=== PATIENT | female | born 1980 | race Caucasian/White ===

== ENCOUNTER 2018-09-04 15:03 | Inpatient (IN) | payer MEDICAID, OTHER ==
[2018-09-04] MEDS ORDERED: Lactated Ringers 1,000 ML IV SCH (15:15)
[2018-09-04] MEDS ORDERED: Penicillin G Potassium 5 MILLUNITS in Sodium Chloride 0.9% 50 ML IV ONE (15:30)
[2018-09-04] MEDS: Penicillin G Potassium 5 MILLUNITS in Sodium Chloride 0.9% 100 ML IV ONE ×2 (15:50→17:55)
[2018-09-04] MEDS ORDERED: Sodium Chloride 0.9% 10 ML Syringe FLUSH PRN (16:03)
[2018-09-04] MEDS ORDERED: ePHEDrine 50 MG/ML SDV IVPUSH PRN ×2 (16:07→17:45)
[2018-09-04] MEDS ORDERED: Lactated Ringers 1,000 ML IV ONE (16:07)
--- NOTE | 2018-09-04 16:17 | PCM.LDHP ---
L&D History of Present Illness - General Date of Service: 09/04/18 Admit Problem/Dx: Patient Status Order with Admit Dx/Problem 09/04/18 16:03 Patient Status [ADT] Routine Admission Diagnosis/Problem Admission Diagnosis/Problem - Related Data Allergies/Adverse Reactions: Allergies Allergy/AdvReac Type Severity Reaction Status Date / Time ciprofloxacin HCl Allergy Severe Hypotension Verified 09/02/15 21:26 [From Cipro] cyclobenzaprine HCl Allergy Severe Hallucinati Verified 09/02/15 21:26 [From Flexeril] ons ketorolac tromethamine Allergy Severe Vomiting Verified 09/02/15 21:26 [From Toradol] Home Medications: Home Meds NK [No Known Home Meds] 09/02/15 [History] Past Medical History HEENT History: Reports: Impaired Vision Other HEENT History: wears contacts [employer] SAL[employer]IATE History: Reports: , Spontaneous Musculoskeletal History: Reports: Back Pain, Chronic Other Musculoskeletal History: L- 5 injury Neurological History: Reports: Concussion, Migraines Psychiatric History: Reports: Anxiety, Depression, OCD, Panic Attack - Infectious Disease History Infectious Disease History: Reports: Chicken Pox, Measles - Past Surgical History Female Surgical History: Reports: D&C H&P Review of Systems - Review of Systems: Review Of Systems: See Below General: Reports: No Symptoms HEENT: Reports: No Symptoms Pulmonary: Reports: No Symptoms Cardiovascular: Reports: No Symptoms Gastrointestinal: Reports: No Symptoms Genitourinary: Reports: No Symptoms Musculoskeletal: Reports: No Symptoms Skin: Reports: No Symptoms Psychiatric: Reports: No Symptoms Neurological: Reports: No Symptoms Hematologic/Lymphatic: Reports: No Symptoms Immunologic: Reports: No Symptoms L&D Exam - Exam Exam: See Below - Vital Signs Weight: 91.172 kg - OB Specific Contraction Intensity: Strong Movement: Active Heart Tones: Present Heart Rate (FHR) Variability: Moderate (6-25 bmp) Presentation: unsure - Greco Score Greco Score Cervix Position: Midposition Greco Score Consistency: Soft Greco Score Effacement: >80% Greco Score Dilation: > 5 cm Greco Score Infant's Station: -1 ,0 Greco Score Total: 11 - Exam General: Alert, Oriented, Cooperative HEENT: PERRLA, Conjunctiva Clear, EACs Clear, EOMI, Hearing Intact, Mucosa Moist & [place], Nares Patent, Normal Nasal Septum, Posterior Pharynx Clear, TMs Clear Neck: Supple, Trachea Midline Lungs: Clear to Auscultation, Normal Respiratory Effort Cardiovascular: Regular Rate, Regular Rhythm GI/Abdominal Exam: Normal Bowel Sounds, Soft, Non-Tender, No Organomegaly, No Distention, No Abnormal Bruit, No Mass, Pelvis Stable Rectal Exam: Normal Exam, Normal Rectal Tone Genitourinary: Normal external exam, Normal bimanual exam, Normal speculum exam Back Exam: Normal Inspection, Full Range of Motion Extremities: Normal Inspection, Normal Range of Motion, Non-Tender, No Pedal Edema, Normal Capillary Refill Skin: Warm, Dry, Intact Neurological: Cranial Nerves Intact, Reflexes Equal Bilateral Psychiatric: Alert, Normal Affect, Normal Mood - Patient Data Lab Results Last 24 hrs: Laboratory Results - last 24 hr 09/04/18 09/04/18 Range/Units 15:20 15:27 WBC 11.3 H (4.5-11.0) K/uL RBC 4.08 (3.30-5.50) M/uL Hgb 11.1 L (12.0-15.0) g/dL Hct 35.7 L (36.0-48.0) % MCV 88 (80-98) fL MCH 27 (27-31) pg MCHC 31 L (32-36) % Plt Count 315 (150-400) K/uL Neut % (Auto) 74 H (36-66) % Lymph % (Auto) 17 L (24-44) % [place] % (Auto) 9 H (2-6) % Eos % (Auto) 1 L (2-4) % Baso % (Auto) 1 (0-1) % Membrane Rupture Negative (NEGATIVE) Result Diagrams: 09/05/18 05:11 09/05/18 05:11 - Problem List (1) SNOMED Code(s): 80330722 ICD Code: Z34.90 - ENCNTR FOR SUPRVSN OF NORMAL , UNSP, UNSP TRIMESTER Status: Acute Qualifiers: Weeks of gestation: 40 weeks Qualified Code(s): Z3A.40 - 40 weeks gestation of (2) Insufficient care SNOMED Code(s): 0305401233792 ICD Code: O09.30 - SUPRVSN OF PREG W INSUFFICIENT ANTENAT CARE, UNSP TRIMESTER Status: Acute (3) History of SNOMED Code(s): 666561290 ICD Code: Z87.59 - PERSONAL HISTORY OF COMP OF PREG, CHLDBRTH AND THE PUERP Status: Acute (4) Kidney abnormality of fetus on ultrasound SNOMED Code(s): 913015207, 338586865 ICD Code: O35.8XX0 - MATERNAL CARE FOR OTH ABNORMALITY AND DAMAGE, UNSP Status: Acute (5) Renal abnormality of fetus on ultrasound SNOMED Code(s): 875031827, 211332767 ICD Code: O35.8XX0 - MATERNAL CARE FOR OTH ABNORMALITY AND DAMAGE, UNSP Status: Acute (6) History of drug abuse SNOMED Code(s): 568259416 ICD Code: F19.11 - OTHER PSYCHOACTIVE SUBSTANCE ABUSE, IN REMISSION Status : Acute (7) Noncompliance SNOMED Code(s): 6267862 ICD Code: Z91.19 - PATIENT'S NONCOMPLIANCE W OTH MEDICAL TREATMENT AND REGIMEN Status: Acute Problem List Initiated/Reviewed/Updated: Yes Orders Last 24hrs: Active Orders 24 hr Category Date Time Status Patient Status [ADT] Routine ADT 09/04/18 16:03 Ordered Ambulate [RC] PER UNIT ROUTINE Care 09/04/18 16:03 Ordered Communication Order [RC] ASDIRECTED Care 09/04/18 16:03 Ordered Communication Order [RC] ASDIRECTED Care 09/04/18 16:07 Ordered Heart Tones [RC] PER UNIT ROUTINE Care 09/04/18 16:03 Ordered Non Stress Test [RC] Click to Edit Care 09/04/18 16:03 Ordered Insert Urinary Catheter [OM.PC] ASDIRECTED Care 09/04/18 16:15 Ordered Local Anesthetic Infusion Pump [RC] ASDIRECTED Care 09/04/18 16:07 Ordered Notify Provider Vital Signs [RC] PRN Care 09/04/18 16:03 Ordered Notify Provider [RC] PRN Care 09/04/18 16:03 Ordered OB Check [OM.PC] Click to Edit Care 09/04/18 15:14 Ordered PCEA Epidural [RC] ASDIRECTED Care 09/04/18 16:07 Ordered PCEA Epidural [RC] ASDIRECTED Care 09/04/18 16:07 Ordered Up ad Niurka [RC] ASDIRECTED Care 09/04/18 16:03 Ordered Urinary Catheter Assessment [RC] ASDIRECTED Care 09/04/18 16:07 Ordered VTE/DVT Education [RC] Click to Edit Care 09/04/18 16:05 Ordered Vital Signs [RC] PER UNIT ROUTINE Care 09/04/18 16:03 Ordered OB Follow Up 1st Gest [US] Routine Exams 09/04/18 16:03 Ordered DRUG SCREEN, URINE [URCHEM] Urgent Lab 09/04/18 15:12 Ordered HCV ANTIBODY Stat Lab 09/04/18 15:52 Ordered HEP BE AG Stat Lab 09/04/18 15:45 Ordered HIV RAPID SCREEN RLFX COMFIRM [CHEM] Stat Lab 09/04/18 15:45 Ordered RUBELLA ANTIBODIES, IGG Stat Lab 09/04/18 15:45 Ordered T PALLIDUM AB (FTA-AB) Stat Lab 09/04/18 15:52 Ordered TYPE AND SCREEN [BBK] Stat Lab 09/04/18 15:45 Ordered UA W/MICROSCOPIC [URIN] Routine Lab 09/04/18 15:12 Ordered Lactated Ringers [Ringers, Lactated] 1,000 ml Med 09/04/18 16:07 Ordered IV .BOLUS Lactated Ringers [Ringers, Lactated] 1,000 ml Med 09/04/18 15:15 Active IV ASDIRECTED Sodium Chloride 0.9% [Saline Flush] Med 09/04/18 16:03 Ordered 10 ml FLUSH ASDIRECTED PRN ePHEDrine [ePHEDrine sulfate] Med 09/04/18 16:07 Ordered 10 mg IVPUSH ASDIRECTED PRN DVT/VTE Prophylaxis Reflex [OM.PC] Routine Oth 09/04/18 16:03 Ordered Epidural Catheter Management [OM.PC] Urgent Oth 09/04/18 16:07 Ordered Saline Lock Insert [OM.PC] Routine Oth 09/04/18 16:03 Ordered Resuscitation Status Routine Resus Stat 09/04/18 16:03 Ordered Medication Orders Ephedrine Sulfate (Ephedrine Sulfate) 10 mg IVPUSH ASDIRECTED PRN PRN Reason: Hypotension Lactated Ringer's (Ringers, Lactated) 1,000 mls @ 125 mls/hr IV ASDIRECTED ASHUTOSH Lactated Ringer's (Ringers, Lactated) 1,000 mls @ 999 mls/hr IV .BOLUS ONE Stop: 09/04/18 17:07 Sodium Chloride (Saline Flush) 10 ml FLUSH ASDIRECTED PRN PRN Reason: Keep Vein Open Assessment/Plan Comment:: 09/04/2018 See following note on patient for assessment-computer logged me out and could not edit this note
[2018-09-04] MEDS ORDERED: Terbutaline 1 MG/ML SDV SUBCUT ONE (16:19)
[2018-09-04] MEDS ORDERED: fentaNYL 250 MCG/5 ML SDV ONE ×2 (16:35→17:56)
[2018-09-04] MEDS ORDERED: Midazolam 1 MG/ML 2 ML SDV ONE (16:36)
[2018-09-04] MEDS ORDERED: Ondansetron 4 MG/2 ML SDV ONE (16:36)
[2018-09-04] MEDS ORDERED: Propofol 200 MG/20 ML SDV ONE (16:36)
[2018-09-04] MEDS ORDERED: Glycopyrrolate 0.2 MG/ML 5 ML MDV ONE (16:36)
[2018-09-04] MEDS ORDERED: Rocuronium 50 MG/5 ML Vial ONE (16:36)
[2018-09-04] MEDS ORDERED: Succinylcholine 200 MG/10 ML MDV ONE (16:36)
[2018-09-04] MEDS ORDERED: Dexamethasone 4 MG/ML SDV ONE (16:36)
[2018-09-04] MEDS ORDERED: Neostigmine Methylsulfate 1 MG/ML 5 ML Syringe ONE (16:36)
[2018-09-04] MEDS ORDERED: Oxytocin 10 Units/1 ML SDV ONE ×2 (16:37→17:05)
--- NOTE | 2018-09-04 17:22 | CRLUS ---
HISTORY: Patient in active labor. Evaluate sacrum, previously not well seen. Evaluate kidneys, previous bilateral renal pelvic dilatation. COMPARISON: Ob ultrasound from 06/01/2018 TECHNIQUE: Ultrasound examination of the is performed with transabdominal technique. FINDINGS: A single intrauterine gestation is seen in breech presentation with regular cardiac activity at 156 beats per minute. The placenta is fundal and is free of the cervical os. The placental grade is III and the amniotic fluid volume is normal. There is mild dilatation of the left renal pelvis along with mild hydronephrosis. The renal pelvis on the left measures 6 millimeters in diameter. The previously seen right renal pelvic dilatation has resolved. The right kidney is now normal in appearance. The sacrum is normal in appearance. IMPRESSION: Single intrauterine gestation in breech presentation with regular cardiac activity. Continued left renal pelvic dilatation along with mild hydronephrosis. The left renal pelvis measures up to 6 millimeters in diameter. Resolution of previously seen dilatation of the right renal pelvis. Normal appearance of the sacrum. Dictated by Bethel Amador MD @ Sep 04 2018 5:15PM Signed by Dr. Bethel Amador @ Sep 04 2018 5:21PM
[2018-09-04] MEDS ORDERED: fentaNYL 100 MCG/2 ML SDV ONE ×3 (17:33→17:52)
[2018-09-04] MEDS ORDERED: Lidocaine 1% with EPINEPHrine 1:100,000 50 ML MDV ONE (17:34)
[2018-09-04] MEDS ORDERED: Bupivacaine 0.5% 50 ML MDV ONE (17:34)
[2018-09-04] MEDS ORDERED: Benzocaine 20% Top Spray 56 GM Bottle TOP PRN (17:45)
[2018-09-04] MEDS ORDERED: diphenhydrAMINE 50 MG/ML SDV IVPUSH PRN (17:45)
[2018-09-04] MEDS ORDERED: Naloxone 0.4 MG/ML SDV IVPUSH PRN ×2 (17:45→18:23)
[2018-09-04] MEDS ORDERED: diphenhydrAMINE 50 MG/ML SDV IV PRN (17:45)
[2018-09-04] MEDS ORDERED: Bisacodyl 10 MG Supp RECTAL PRN (17:45)
[2018-09-04] MEDS ORDERED: Ondansetron 4 MG Tab.DIS PO PRN (17:45)
[2018-09-04] MEDS ORDERED: Ketorolac 30 MG/ML SDV IVPUSH SCH (17:45)
[2018-09-04] MEDS ORDERED: Morphine PF 150 MG/30 ML PCA Syringe IV PRN (18:23)
[2018-09-04] MEDS: Sodium Chloride 0.9% 1,000 ML IV SCH (19:15)
--- NOTE | 2018-09-04 19:21 | PCM.PNLD ---
Labor Progress Note - VS & Meds Vital Signs: Last Vital Signs Temp 36.2 C 09/04/18 18:30 Pulse 85 09/04/18 18:30 Resp 20 09/04/18 18:30 BP 137/62 09/04/18 18:30 Pulse Ox 96 09/04/18 19:15 Active Medications: Current Medications Benzocaine (Rina-F-Qwbscel 20% [place]) 0 gm TOP Q4H PRN PRN Reason: Hemorrhoids Bisacodyl (Dulcolax) 10 mg RECTAL BID PRN PRN Reason: Constipation Diphenhydramine HCl (Benadryl) 25 mg IV Q4H PRN PRN Reason: Itching Docusate Sodium (Colace) 100 mg PO Q12H PRN PRN Reason: Constipation Ephedrine Sulfate (Ephedrine Sulfate) 10 mg IVPUSH ASDIRECTED PRN PRN Reason: Hypotension Ephedrine Sulfate (Ephedrine Sulfate) 5 mg IVPUSH ASDIRECTED PRN PRN Reason: Other Lactated Ringer's (Ringers, Lactated) 1,000 mls @ 125 mls/hr IV ASDIRECTED ASHUTOSH Sodium Chloride (Normal Saline) 1,000 mls @ 125 mls/hr IV ASDIRECTED ASHUTOSH Ibuprofen (Motrin) 800 mg PO Q8H ASHUTOSH Ketorolac Tromethamine (Toradol) 30 mg IVPUSH Q8H [facility] Stop: 09/09/18 17:47 Morphine Sulfate (Morphine Fabric Stretcher 150 Mg In 30 Ml) 0 mg IV ASDIRECTED PRN; Protocol PRN Reason: Pain Naloxone HCl (Narcan) 0.1 mg IVPUSH ASDIRECTED PRN PRN Reason: Respiratory Depression Naloxone HCl (Narcan) 0.4 mg IVPUSH Q2M PRN PRN Reason: Respiratory Distress Ondansetron HCl (Zofran Odt) 8 mg PO Q6H PRN PRN Reason: Nausea/Vomiting Prenat Multivit/[place]/Iron/Folic Ac ( Plus Iron) 1 each PO DAILY [facility] Sodium Chloride (Saline Flush) 10 ml FLUSH ASDIRECTED PRN PRN Reason: Keep Vein Open Discontinued Medications Bupivacaine HCl (Marcaine 0.5%) Confirm Administered Dose 50 ml .ROUTE .STK-MED ONE Stop: 09/04/18 17:35 Last Admin: 09/04/18 17:38 Dose: 20 ml Dexamethasone (Dexamethasone) Confirm Administered Dose 4 mg .ROUTE .STK-MED ONE Stop: 09/04/18 16:37 Diphenhydramine HCl (Benadryl) 25 mg IVPUSH Q6H PRN PRN Reason: Itching or Nausea Fentanyl (Sublimaze) Confirm Administered Dose 250 mcg .ROUTE .STK-MED ONE Stop: 09/04/18 16:36 Fentanyl (Sublimaze) Confirm Administered Dose 100 mcg .ROUTE .STK-MED ONE Stop: 09/04/18 17:34 Fentanyl (Sublimaze) Confirm Administered Dose 100 mcg .ROUTE .STK-MED ONE Stop: 09/04/18 17:39 Fentanyl (Sublimaze) Confirm Administered Dose 100 mcg .ROUTE .STK-MED ONE Stop: 09/04/18 17:53 Fentanyl (Sublimaze) Confirm Administered Dose 250 mcg .ROUTE .STK-MED ONE Stop: 09/04/18 17:57 Glycopyrrolate (Robinul) Confirm Administered Dose 1 mg .ROUTE .STK-MED ONE Stop: 09/04/18 16:37 Penicillin G Potassium 5 (millunits/ Sodium Chloride) 100 mls @ 200 mls/hr IV ONETIME ONE Stop: 09/04/18 15:59 Last Admin: 09/04/18 15:50 Dose: 200 mls/hr Lactated Ringer's (Ringers, Lactated) 1,000 mls @ 999 mls/hr IV .BOLUS ONE Stop: 09/04/18 17:07 Last Admin: 09/04/18 15:50 Dose: 999 mls/hr Lidocaine/Epinephrine (Xylocaine 1% With Epinephrine 1:100,000) Confirm Administered Dose 50 ml .ROUTE .STK-MED ONE Stop: 09/04/18 17:35 Last Admin: 09/04/18 17:38 Dose: 20 ml Midazolam HCl (Versed 1 Mg/Ml) Confirm Administered Dose 2 mg .ROUTE .STK-MED ONE Stop: 09/04/18 16:37 Neostigmine Methylsulfate (Neostigmine) Confirm Administered Dose 5 mg .ROUTE .STK-MED ONE Stop: 09/04/18 16:37 Ondansetron HCl (Zofran) Confirm Administered Dose 4 mg .ROUTE .STK-MED ONE Stop: 09/04/18 16:37 Oxytocin (Pitocin) Confirm Administered Dose 20 unit .ROUTE .STK-MED ONE Stop: 09/04/18 16:38 Last Admin: 09/04/18 17:10 Dose: 10 unit Oxytocin (Pitocin) Confirm Administered Dose 10 unit .ROUTE .STK-MED ONE Stop: 09/04/18 17:06 Propofol (Diprivan 20 Ml) Confirm Administered Dose 200 mg .ROUTE .STK-MED ONE Stop: 09/04/18 16:37 Rocuronium [place] (Zemuron) Confirm Administered Dose 50 mg .ROUTE .STK-MED ONE Stop: 09/04/18 16:37 Succinylcholine Chloride (Quelicin) Confirm Administered Dose 200 mg .ROUTE .STK -MED ONE Stop: 09/04/18 16:37 Terbutaline Sulfate (Brethine) 0.25 mg SUBCUT ONETIME ONE Stop: 09/04/18 16:20 Last Admin: 09/04/18 16:28 Dose: 0.25 mg - Uterine Contractions Uterine Monitoring Mode: External [place] Contraction Frequency (min): 3.5-4 Contraction Duration (sec): 60-120 Contraction Intensity: Strong - Monitoring Monitor Mode: External Ultrasound Heart Rate (FHR) Variability: Moderate (6-25 bmp) - Vaginal Exam Dilation (cm): 6 Sterile Vaginal Exam Performed By: Sheila Garibay - Labor Progress (Free Text) Labor Progress: 09/04/2018 Ultrasound done at bedside, is breech position, mother is actively laboring, will proceed to an emergency for breech presentation Team called in and surgeon callled Patient verbalized understanding and agreed with plan of care Did give one dose of terbutaline SQ to try to get patient down to the OR without delivery See OR notes.
[2018-09-04] MEDS ORDERED: cefTRIAXone 2 GM in Sodium Chloride 0.9% 50 ML IV ONE (19:34)
[2018-09-04] MEDS ORDERED: HYDROmorphone/Normal Saline 15 MG/30 ML PCA IV SCH (19:45)
[2018-09-04] MEDS: Ibuprofen 800 MG Tab PO SCH (20:47)
[2018-09-05] MEDS: Ibuprofen 800 MG Tab PO SCH ×3 (04:21→19:18)
[2018-09-05] MEDS: Sodium Chloride 0.9% 1,000 ML IV SCH (04:34)
[2018-09-05] MEDS: Nicotine 21 MG/24 Hr Patch TRDERM SCH ×2 (05:37→10:22)
[2018-09-05] MEDS: Prenatal Multivitamin with Calcium/Folic Acid/Iron Tab PO SCH (10:22)
--- NOTE | 2018-09-05 11:32 | PN ---
DATE OF SERVICE: 09/05/2018 SUBJECTIVE: The patient is doing quite well today. Pain is well controlled. No nausea, vomiting, shortness of breath, or chest pain. She is passing gas. No bowel movement yet. OBJECTIVE: VITAL SIGNS: Stable. CARDIOVASCULAR: Regular rhythm and rate. RESPIRATORY: Lungs are clear to auscultation bilaterally. Incision healing well. ASSESSMENT AND PLAN: Status post section. PLAN: The patient's [place] is out. We will continue to advance the diet and activity. We will stop [employer] today. Switch over to ibuprofen and [place] for pain management. Anticipated discharge in the next 24 to 48 hours. Issa Landon MD /[id number]
[2018-09-05] MEDS: Acetaminophen/HYDROcodone 325-5 MG Tab PO PRN ×2 (12:23→18:52)
[2018-09-06] MEDS: Acetaminophen/HYDROcodone 325-5 MG Tab PO PRN ×4 (00:09→17:40)
[2018-09-06] MEDS: Ibuprofen 800 MG Tab PO SCH ×3 (03:13→19:33)
[2018-09-06] MEDS: Nicotine 21 MG/24 Hr Patch TRDERM SCH (11:18)
[2018-09-06] MEDS: Prenatal Multivitamin with Calcium/Folic Acid/Iron Tab PO SCH (11:19)
--- NOTE | 2018-09-06 13:59 | PN ---
DATE OF SERVICE: 09/06/2018 SUBJECTIVE: Patient doing very well. Pain is well controlled. No nausea, vomiting, shortness of breath, or chest pain. She is passing gas. OBJECTIVE: VITAL SIGNS: Stable. CARDIOVASCULAR: Regular rhythm and rate. RESPIRATORY: Lungs are clear to auscultation bilaterally. ABDOMEN: Incision healing well without signs of infection. ASSESSMENT: Status post section. PLAN: The patient will continue to work on bowel movement and pain management. Anticipate discharge tomorrow. Issa Landon MD /[id number]
[2018-09-06] MEDS: Docusate Sodium 100 MG Cap PO PRN (19:33)
[2018-09-07] MEDS: Acetaminophen/HYDROcodone 325-5 MG Tab PO PRN ×2 (02:37→11:14)
[2018-09-07] MEDS: Ibuprofen 800 MG Tab PO SCH ×2 (03:05→12:37)
[2018-09-07 08:11] VITALS: PULSE 96
[2018-09-07] MEDS: Nicotine 21 MG/24 Hr Patch TRDERM SCH (08:30)
[2018-09-07] MEDS: Prenatal Multivitamin with Calcium/Folic Acid/Iron Tab PO SCH (09:23)
[2018-09-07] MEDS: Docusate Sodium 100 MG Cap PO PRN (09:23)
[2018-09-07] MEDS ORDERED: Magnesium Hydroxide 400 MG/5 ML Susp 30 ML Cup PO ONE (11:07)
--- NOTE | 2018-09-07 11:15 | OR ---
CORRECTED REPORT DATE OF PROCEDURE: 09/06/2018 PROCEDURE: section with aftercare. TECHNOLOGY LAB TEACHER: Sheila Garibay CNM. COMPLICATIONS: None. ANESTHESIA: General. INDICATIONS: A 38-year-old female with a breech baby, requiring stat . Please see Sheila Garibay's notes for further details. Prior to the procedure, the patient and I discussed risks, benefits, alternatives, and limitations including, but not limited to, infection, bleeding, chronic wounds, chronic pain, injury to baby, injury to the bladder, cardiovascular and respiratory compromise with baby and mother, injury to extremities resulting in permanent damage. Other risks not listed here. The patient understands these risks and wished to proceed. Of note, this discussion was given prior to medication introduction. FINDINGS: Breech baby, large. PROCEDURE IN DETAIL: The patient was placed in the supine position. Within 5 seconds of general anesthetic initiation, a 15 blade was used to make a Pfannenstiel-type incision. This was approximately 7 cm in size. This was carried down rapidly with electrocautery to the external fascia which was also opened with cautery. A muscle-sparing technique was then performed. The bladder was identified and deflected inferior anteriorly. A bladder blade was used to protect this. A Bárbara clamp was used to bluntly dissect the uterus. The sac was entered, fluid was noted. The baby was noted to be breech by 180 degrees. The baby was then delivered with moderate difficulty. During this delivery process, at no time was undue pressure or tension put on the baby's extremities or head. During this process, baby was delivered, was noted to have a nuchal cord x2. The baby was lethargic after delivery. The cord was removed from around the neck, clamped and cut. The baby was then passed off the operative field. Please see Sheila Garibay's notes for further details. Placenta was delivered without any difficulty. Pitocin was given. Placenta was delivered in toto. Moderate amount of bleeding was noted. The uterus was then closed with #1 Vicryl sutures in running locking x2 in 3 separate layers. No bleeding was noted after closure of the uterus. Bladder was then reapproximated with Vicryl sutures. The abdomen was irrigated. Clots were removed during multiple parts of this process. The abdomen was serially checked for any abnormality, none was noted. The rectus muscles were approximated with Vicryl suture. The fascia was closed with #1 Vicryl running x2. Each layer continued to be irrigated. Subcutaneous tissues were reapproximated. The skin was closed with 4-0 Vicryl. Dermabond was applied. The patient tolerated the procedure well. Also of note, the patient did have a tattoo in the Pfannenstiel surgical line. Unfortunately, due to the urgency of this procedure, the tattoo would be involved. Issa Landon MD /[id number]
[2018-09-07 11:17] VITALS: BP 140/79
[2018-10-09 05:04] LABS: MDA SEP; MDA GC/MS CONF RPT; MDEA RPT; MDEA GC/MS CONF SEE SEP RPT; MDMA SEE; MDMA GC/MS CONF SEP; MDMA METABOLITES SEE
== END 2018-09-07 14:53 | disposition home or self-care (01) | DRG 787 ==
LOC: JP.OBCHECK 15:03 → JP.OB 15:46 → OBSVTOIN 15:46 → JP.MS 18:40
PROVIDERS: ADMIT Advanced Practice Midwife; ATTEND Surgery
PROC: 10D00Z1 Extraction of Products of Conception, Low, Open Approach (ICD-10-PCS; principal; 2018-09-04)
DX: O32.1XX0 Maternal care for breech presentation, not applicable or unspecified (principal); O99.324 Drug use complicating childbirth; Z3A.00 Weeks of gestation of pregnancy not specified; Z37.0 Single live birth; O69.81X0 Labor and delivery complicated by cord around neck, without compression, not applicable or unspecified; O99.334 Smoking (tobacco) complicating childbirth; F17.210 Nicotine dependence, cigarettes, uncomplicated; O35.8XX0 Maternal care for other (suspected) fetal abnormality and damage, not applicable or unspecified; Z87.59 Personal history of other complications of pregnancy, childbirth and the puerperium; H54.7 Unspecified visual loss; Z91.19 Patient's noncompliance with other medical treatment and regimen; Z88.1 Allergy status to other antibiotic agents; Z88.8 Allergy status to other drugs, medicaments and biological substances
CPT/HCPCS: 36415; 59409; 76816; 80048; 80305-QW; 80307; 81001; 84112; 85025; 86762; 86780; 86803; 86850; 86900; 86901; 87086; 87350; 87449; 88307; 94762; 99211; A9270-GY; G0480; J0330; J0696; J1100; J1170; J2250; J2405; J2540; J2590; J2704; J2710; J3010; J3105; J3490; J7030; J7050; J7120